=== PATIENT | male | born 1955 | race Caucasian/White ===

== ENCOUNTER → 2021-11-01 08:52 | Outpatient (BNVA) | payer MEDICARE, SELFPAY | PROVIDERS: PCP Neuromusculoskeletal Medicine & OMM; Referring Provider Neuromusculoskeletal Medicine & OMM; Visit Provider Surgery | DX: K42.9 Umbilical hernia without obstruction or gangrene (principal); Z91.89 Other specified personal risk factors, not elsewhere classified | CPT/HCPCS: 99203 ==

== ENCOUNTER 2021-11-21 04:03 | Outpatient (CLI) | payer MEDICARE, SELFPAY ==
[2021-11-21 10:48] LABS: Source Nasal/Nares
[2021-11-21 15:17] LABS: COVID-19 PCR Negative (Negative)
== END 2021-11-21 04:04 | disposition home or self-care (01) ==
LOC: LBO 04:03
PROVIDERS: PCP Neuromusculoskeletal Medicine & OMM; Visit Provider Surgery
DX: Z20.822 Contact with and (suspected) exposure to COVID-19 (principal); Z01.818 Encounter for other preprocedural examination
CPT/HCPCS: 87635; U0005

== ENCOUNTER 2021-11-23 17:06 | Observation (INO) | payer MEDICARE, SELFPAY ==
[2021-11-23] VITALS (15 sets, daily range): BP systolic 86–169; BP diastolic 53–88; PULSE 50–71; RESP 10–18; TEMP 36–36.6; O2SAT 94–98; BMI 33.9
--- NOTE | 2021-11-23 06:39 | ROE_ITS ---
Date of service: 11/23/21 Time of Service: 11:15 Operative Note Operative Note DATE OF PROCEDURE: 11/23/21 PRE-OP DIAGNOSIS: umbilical hernia POST-OP DIAGNOSIS: same PROCEDURE: Umbilical Hernia repair with mesh SURGEON: Liz Dunbar [employer]STATE FINANCIAL ANALYST: Zoe Narayanan Refer to Anesthesia Record ESTIMATED BLOOD LOSS: 25 PATHOLOGY: none sent COMPLICATIONS: None Patient was transported to: PACU Patient's condition: stable Implants: Ventralex Hernia Patch: REF- [id number] LOT- [id number] 2023-04-16 Indications: Mr[address] Street is a pleasant 66-year-old gentleman with a umbilical hernia that has some fat within it.? It is easily reduced.? It has grown over the last 4 years.? It is starting to bother him especially when he is active.? He denies any nausea, vomiting or changes in bowel habits.? We discussed open umbilical repair with a mesh.? I reviewed the surgery and its risks and complications using a pamphlet with pictures.? All of his questions were answered to his satisfaction.? He would like to wait until after sugaring before he has it repaired. Risks, benefits and complications have been reviewed. Complications include but are not limited to bleeding, pain, infection, injury to underlying structures like bowel and adverse reaction to the medication.? Questions were entertained and answered to their satisfaction and they wished to proceed. No guarantees were given or implied. Procedure Description: After informed consent was obtained the patient was taken to the operating room and placed in a supine position. Monitors and SCDs were applied and a timeout was done. The patient's name, date of , procedure type, procedure site, allergies to medications, preoperative antibiotic, and DVT prophylaxis were all reviewed. Fire risk was assessed. Next anesthesia did a bilateral rectus block under ultrasound guidance. Please see their separate dictation. Once anesthesia was done the abdomen was prepped and draped in a sterile surgical fashion. 0.5% Bupivacaine was injected into the dermis just under the umbilicus. An incision was made with a 10 blade under the umbilicus. Dissection was done with cautery through the subcutaneous tissues and through th e umbilical stalk down to the fascia. The hernia defect was identified and measured at 3 x 2.5 cm. There was omentum stuck within the defect. The omentum was placed back into the abdominal cavity and the peritoneum was swept for adhesions. No adhesions were noted. A 6.4 cm round mesh was then placed under the peritoneum and secured in 4 quarters with 2-0 Proline. Once the mesh was secured the tissues were irrigated with some normal saline. No bleeding was identified. The fascia was closed over the mesh with 0 vicryl running suture. 2-0 Vicryl was used to secure the umbilicus down to the fascia. The subcutaneous tissue was re-approximated with 2-0 vicryl. The dermis was re-approximated with a running 4-0 Vicryl. The skin was cleaned and dried and skin affix was applied. The patient was woken up and taken back to recovery in stable condition. There were no immediate complications. Sponge, instrument and needle counts were correct at the end of the case x2.
--- NOTE | 2021-11-23 06:41 | PDOC.DSDIS_ITS ---
Discharge Plan Disposition Patient Disposition: HOME Condition: Stable Discharge Details Reason For Visit: Umbilical hernia repair with mesh Attending Provider: Liz Dunbar Primary Care Provider: Kostas Meier [place] Meds and New Rx's Prescriptions: Continued cannabidiol 100 mg/mL solution PO 0RF chlorthalidone 25 mg tablet 25 mg PO DAILY 0RF metoprolol succinate 50 mg tablet extended release 24 hr 50 mg PO DAILY 0RF ramipril 10 mg capsule 10 mg PO DAILY 0RF simvastatin 80 mg tablet 40 mg PO DAILY 0RF aspirin [Adult Aspirin Regimen] 81 mg tablet,delayed release (DR/EC) 81 mg PO DAILY 0RF Discharge Instructions Additional Instructions: Activity at Home after surgery: 1. Make sure you walk outside at least 4 times per day 2. You should be able to climb a flight of stairs 3. No driving while in pain or taking pain medications 4. No strenuous activity or heavy lifting for 4 weeks (open surgery) Diet, Nutrition, & wound healin. Avoid alcohol until after you are recovered from your surgery 2. Make sure to eat plenty of lean protein (meat, fish, eggs, cottage cheese, beans) 3. Eat a variety of fruits and vegetables. Eat plenty of high fiber foods to avoid constipation. 4. Drink plenty of liquids to stay hydrated and avoid constipation Pain Medications: 1. Tylenol 650mg every 6 hours as needed and Ibuprofen 600 mg every 6 hours as needed. You may alternate between the 2 medications every 3 hours 2. If a narcotic has been prescribed take as directed only for breakthrough pain For Constipation: 1. Take Milk of Magnesia or MiraLax as needed for constipation Other: 1. You may shower daily. Do not scrub the incisions 2. Do not soak the incisions for 1 week 3. You may alternate ice and heat as needed for pain and swelling Wound Care: 1. Keep the incisions clean and dry Please call our office if you develop: 1. Fevers >101.5 2. Nausea or Vomiting 3. Worsening pain 4. Redness and thick discharge from the wounds If after hours please call the Hospital at and ask to speak to the on-call surgeon Referrals: Liz Dunbar MD [ [facility] STAFF PHYSICIAN] - Activity:: as above Remove Dressings/Wound Care:: Do Not Remove Shower/Bathe:: 24 hours Diet:: As Tolerated Discharge Orders Discharge Orders: Discharge Order (Routine); Ordered 11/23/21 Ordered By: Liz Dunbar
[2021-11-23] MEDS: Gabapentin 300 MG CAP 600 MG PO (09:22)
[2021-11-23] MEDS: Acetaminophen 500 MG TAB 1000 MG PO (09:22)
[2021-11-23] MEDS: Celecoxib 200 MG CAP PO (09:22)
--- NOTE | 2021-11-23 09:29 | W.ANESPRE ---
General Info Date of Service Date Performed: 11/23/21 Height: 5 ft 7 in Weight: 98.3 kg Body Mass Index (BMI): 33.9 Surgical Procedure: Operation Date: 11/23/21 11:10 Proposed Procedure Side Surgeon p Herniorrhaphy Umbilical w/Mesh Liz Dunbar MD Meds Allergies and Home Medications Allergies Allergy/AdvReac Type Severity Reaction Status Date / Time No Known Allergies Allergy Verified 11/23/21 09:10 Home Medication Medication Instructions Recorded aspirin 81 mg tablet,delayed 81 mg PO DAILY 11/01/21 release (Adult Aspirin Regimen) cannabidiol 100 mg/mL oral solution PO 11/01/21 chlorthalidone 25 mg tablet 25 mg PO DAILY 11/01/21 metoprolol succinate 50 mg 50 mg PO DAILY 11/01/21 tablet,extended release 24 hr ramipril 10 mg capsule 10 mg PO DAILY 11/01/21 simvastatin 80 mg tablet 40 mg PO DAILY 11/01/21 Current Visit Medications: Current Medications Generic Name Dose Route Start Last Admin Trade Name Freq PRN Reason Stop Dose Admin Acetaminophen 1,000 mg 11/23/21 06:00 11/23/21 09:22 Acetaminophen 500 Mg Tab PO 12/22/21 23:59 1,000 mg PREOP ERMA Administration Celecoxib 200 mg 11/23/21 06:00 11/23/21 09:22 Celecoxib 200 Mg Cap PO 12/22/21 23:59 200 mg PREOP ERMA Administration Gabapentin 600 mg 11/23/21 06:00 11/23/21 09:22 Gabapentin 300 Mg Cap PO 12/22/21 23:59 600 mg PREOP ERMA Administration Ringer's Solution 1,000 mls @ 80 mls/hr 11/23/21 06:00 IV 12/22/21 23:59 INFUSION ERMA Cefazolin Sodium/Dextrose 2 gm in 50 mls @ 100 mls/hr 11/23/21 06:00 Ancef Duplex IVPB 12/22/21 23:59 PREOP ERMA Ondansetron HCl 4 mg/ Sodium 52 mls @ 200 mls/hr 11/23/21 06:41 Chloride IVPB Q6H PRN PRN IV Miscellaneous Supplies 1 each 11/23/21 06:00 Iv Access IV 12/22/21 23:59 DIRECTED ERMA Ibuprofen 600 mg 11/23/21 06:41 Ibuprofen 600 Mg Tab PO Q6H PRN PRN Pain Oxycodone HCl 5 mg 11/23/21 06:41 Oxycodone 5 Mg Tab PO Q3H PRN PRN Pain Sodium Chloride 0 ml 11/23/21 06:00 Normal Saline Flush 10 Ml Syr IV 12/22/21 23:59 PRN PRN Sodium Chloride 0 ml 11/23/21 06:00 Normal Saline 10 Ml Vial IJ 12/22/21 23:59 DIRECTED PRN Sterile Water 0 ml 11/23/21 06:00 Water,Injection,Sterile 10 Ml Vial IJ 12/22/21 23:59 DIRECTED PRN PFSH Active Problems Active Problems: Problem Status Onset Code Umbilical hernia K42.9 Medical History Medical History Heart attack PCI/stent left circ ~2002 Heart palpitations Hyperlipidemia Hyperplasia of prostate Impaired fasting glucose Left shoulder pain Osteoarthritis of knee Over weight Plantar fascial fibromatosis Medical History Comments:: last surgery he had to stay over night d/t slow to come out of it Surgical History Surgical History (Updated 11/23/21 @ 09:10 by Tegan Valero RN) Hx of heart artery stent Hx of knee surgery b/l Tobacco Smoking/Tobacco Use Status: Former Tobacco Use Alcohol Alcohol Intake: current Alcohol intake frequency: 0-2 drinks per day Alcohol type: beer, wine and hard liquor Substance Use Substance use: Never Substance use type: does not use Vital Signs and Lab Results Vital Signs Most Recent Vital Signs in EMR: Most Recent Vital Signs Temp Pulse Resp BP Pulse Ox 36.6 C 64 16 158/82 H 97 11/23/21 08:53 11/23/21 08:53 11/23/21 08:53 11/23/21 08:53 11/23/21 08:53 Lab Results Blood Type / Crossmatch: No Data to Display Complete Blood Count: No Data to Display Complete Metabolic Panel: No Data to Display Liver Function Panel: No Data to Display Coagulation Panel: No Data to Display Cardiac Panel: No Data to Display Arterial Blood Gas: No Data to Display Venous Blood Gas: No Data to Display Pancreas Panel: No Data to Display Thyroid Panel: No Data to Display Infectious Disease: Coronavirus (COVID-19)(PCR) Negative (Negative) 11/21/21 08:25 11/21/21 Coronavirus 2019 Source Nasal/Nares 11/21/21 08:25 11/21/21 Blood Cultures: No Data to Display Toxicology Panel: No Data to Display Anesthesia Assessment and Plan Anesthesia History Personal History: Delayed Emergence Family History: No Family History of Anesthesia Complications Exercise Tolerance Exercise Tolerance: Metabolic Equivalents>4 Pertinent Negatives Pertinent Negatives: No Symptoms of GERD, No Major Cardiovascular Symptoms or Complaints, No Major Pulmonary Symptoms or Complaints, No History of CVA/TIA and Other (Possible carpal tunnel in right hand) Cardiac & Pulmonary Exam Cardiac Exam: Normal S1/S2 Heart Sounds Pulmonary Exam: Clear Bilateral Breath Sounds Implantable Cardiac Device Does patient have a Pacemaker or an ICD?: No Airway Exam Known Difficult Airway: No Mallampati Class: 2 Mouth Opening: Normal (> 3cm) Thyromental Distance: Greater than 3 cm Facial Hair: Full [place] Neck Range of Motion: Full ROM Neck Circumference: Normal Teeth Condition: Normal Dentition ASA Classification ASA Score: ASA 2 Emergency Case?: No NPO Status NPO Status: NPO Clears >2 hours, Solids >8 hours Anesthesia Plan Resuscitation Status: Full Code Anesthesia Technique: General Anesthesia Airway Planned: LMA Pain Management: Surgeon and patient request nerve block Monitors Used: Standard Monitors
[2021-11-23] MEDS: Lactated Ringers 1,000 ML 80 ML IV (09:32)
[2021-11-23] MEDS: ceFAZolin 2 GM/50 ML BAG IVPB (10:55)
--- NOTE | 2021-11-23 11:15 | W.ANESNERVE ---
Nerve Block Single Injection Procedure Date and Time Date Performed: 11/23/21 Procedure Start: 11:02 Location Where Procedure Performed Procedure Location: Operating Room Procedure Stop: 11:10 Reason Performed: Postoperative Analgesia Requesting Provider: Liz Dunbar Timeout Performed Timeout Performed: Yes Monitoring Used ECG, Blood Pressure, SpO2 and ETCO2 Sterility Sterility: Hand Hygiene, Surgical Cap, Surgical Mask, Sterile Gloves, Eye Protection and Chlorhexidine Sedation Given During Procedure Sedation Given (Indicate Dose Given): No Sedation given Patient Mental Status Patient Mental Status: Performed under general anesthesia Nerve Block 1st Nerve Block: Laterality: Bilateral Block Type: Rectus Sheath (Bilateral) Needle / Catheter Used: 100mm SonoPlex II Local Anesthetic Bolus (Indicate Dose Given): Bupivacaine 0.25% Dose:: 20 cc each side Additives (Indicate Dose Given): Precedex ((45 mcg each side)) Dose:: 90 mcg Ultrasound: Sterile probe cover and gel used Ultrasound Image Saved?: Yes Nerve Stimulator: Not Used Paresthesia: None Procedure Tolerated: No Complications and Patient tolerated well Procedure Outcome: Successful Performed By: Malika Chavez Supervised By: Jerry Can
[2021-11-23] MEDS: Bupivacaine 0.25% Pres-Free 30 ML VIAL (11:35)
--- NOTE | 2021-11-23 13:10 | W.ANESPOSTOP ---
Postoperative Evaluation Date, Time and Location Date Performed: 11/23/21 Time Performed: 13:10 Patient Location: Day Surgery Unit Vital Signs Most Recent Imported Vital Signs: Most Recent Vital Signs Temp Pulse Resp BP Pulse Ox 36.5 C 54 L 16 131/69 97 11/23/21 12:58 11/23/21 12:58 11/23/21 12:58 11/23/21 12:58 11/23/21 12:58 Pain Score Most Recent Pain Score: Most Recent Pain Score Pain Level 3 11/23/21 12:58 Assessment Mental Status: Awake (Alert & Oriented to Patient Baseline) Airway and Respiratory Function: Patent airway with normal (patient baseline) respiratory exam Cardiovascular Function: Hemodynamically Stable Hydration Status: Adequately Hydrated Nausea & Vomiting: No Nausea or Vomiting Pain: Pain is tolerable per patient Peripheral Nerve Block: Regional nerve block not resolved at time of post operative discharge
[2021-11-23] MEDS: Ondansetron O.D.T. 4 MG TABEF PO (15:28)
--- NOTE | 2021-11-23 17:11 | W.PREOPHP ---
Assessment and Plan Assessment and plan (1) Vertigo: Status: Acute Assessment and plan: 66 year old s/p umbilical hernia repair with mesh. Now with vertigo type symptoms and nausea. Unsteady on his feet P: Admission for Nausea and vertigo control Diet as tolerated Up ad lisha Meclezine for Vertigo Ibuprofen and tylenol as needed for pain Zofran and phenergan for nausea (2) Nausea: Status: Acute History of Present Illness Narrative: Cornelio is a pleasant 66 year old male who underwent an uncomplicated umbilical hernia repair with mesh. He unfortunately has developed vertigo with Nausea and is not steady on his feet. I have recommended admission overnight. Review of Systems All systems reviewed & are unremarkable except as noted in HPI and below PFSH All Active Problems (Updated 11/23/21 @ 17:14 by Liz Dunbar MD) Nausea (Acute) Vertigo (Acute) Umbilical hernia (Acute) Medical History Heart attack PCI/stent left circ ~2002 Heart palpitations Hyperlipidemia Hyperplasia of prostate Impaired fasting glucose Left shoulder pain Osteoarthritis of knee Over weight Plantar fascial fibromatosis Surgical History Hx of heart artery stent Hx of knee surgery b/l Social History Smoking/Tobacco Use Status: Former Tobacco Use Quit Date: 08/20/96 Smoking risk assessment performed?: Yes Alcohol Intake: current Alcohol Intake frequency: 0-2 drinks per day Alcohol type: beer, wine and hard liquor Drug use: Never Substance use type: does not use Current gender identity: male Do you feel safe at home: Yes Do you feel safe in your relationship?: Yes Meds Allergies and Home Medications Allergies Allergy/AdvReac Type Severity Reaction Status Date / Time No Known Allergies Allergy Verified 11/23/21 09:10 Home Medications Medication Instructions Recorded Confirmed Type aspirin 81 mg tablet,delayed 81 mg PO DAILY 11/01/21 11/23/21 History release (Adult Aspirin Regimen) cannabidiol 100 mg/mL oral solution PO 11/01/21 11/01/21 History chlorthalidone 25 mg tablet 25 mg PO DAILY 11/01/21 11/23/21 History metoprolol succinate 50 mg 50 mg PO DAILY 11/01/21 11/23/21 History tablet,extended release 24 hr ramipril 10 mg capsule 10 mg PO DAILY 11/01/21 11/23/21 History simvastatin 80 mg tablet 40 mg PO DAILY 11/01/21 11/23/21 History ondansetron 4 mg disintegrating 4 mg PO Q6H PRN #7 tab 11/23/21 Rx tablet Exam Const General: cooperative, comfortable and no acute distress HENMT Head: normocephalic and atraumatic Resp Effort & Inspection: normal respiratory effort Auscultation: clear to auscultation bilaterally Cardio Rate: regular rate Rhythm: regular rhythm GI Palpation: soft, no hepatosplenomegaly and tender (appropriate for postop) Results Last Vital Signs Temp 97.3 F L 11/23/21 15:08 Pulse 50 L 11/23/21 15:08 Resp 18 11/23/21 15:08 BP 169/88 H 11/23/21 15:08 Pulse Ox 95 11/23/21 15:08
[2021-11-23] MEDS: Meclizine 12.5 MG TAB PO (17:18)
[2021-11-23] MEDS: Lactated Ringers 1,000 ML 75 ML IV (17:43)
[2021-11-23] MEDS: Ibuprofen 600 MG TAB PO (21:42)
[2021-11-23] MEDS: Simvastatin 40 MG TAB PO (21:42)
[2021-11-24] MEDS: Ibuprofen 600 MG TAB PO (03:57)
[2021-11-24] MEDS: Normal Saline Flush 10 ML SYR IVP (03:58)
[2021-11-24 07:41] VITALS: BP 130/74; PULSE 59; RESP 16; TEMP 37.1; O2SAT 98
--- NOTE | 2021-11-24 07:53 | W.PM.PROGNOT ---
Date of Service Date of service: 11/24/21 Time of Service: 07:53 Assessment and Plan Assessment and plan (1) Vertigo: Status: Acute Assessment and plan: POD #1 s/p umbilical hernia repair with mesh Patient was kept over night secondary to post-op vertigo symptoms of nausea and vomiting. These symptoms have completely resolved. Pain is well controlled with Tylenol Denies any fevers chills or night sweats. D/C home. (2) Nausea: Status: Acute Subjective Subjective Interval history since last seen: Patient reports his dizziness and nausea resolved around 7-8pm and he has continued to feel well since around that time. He denies any nausea, vomiting or dizziness. He is eager to be d/c home. Exam Const General: cooperative, healthy appearing and comfortable Orientation: alert and oriented x3 Resp Effort & Inspection: normal respiratory effort, no audible wheezes and no cough Objective Last Vital Signs Temp 37.1 C 11/24/21 07:41 Pulse 59 L 11/24/21 07:41 Resp 16 11/24/21 07:41 BP 130/74 11/24/21 07:41 Pulse Ox 98 11/24/21 07:41
--- NOTE | 2021-11-24 07:56 | W.PM.DS.N ---
Date of service: 11/24/21 Time of Service: 07:56 DS: Diagnosis Discharge Diagnosis (1) Vertigo: Status: Acute (2) Nausea: Status: Acute Discharge Plan Disposition Patient Disposition: HOME Condition: Good Discharge Details Reason For Visit: Umbilical hernia repair with mesh Admit Date/Time: 11/23/21 17:06 Admit Provider: Liz Dunbar Attending Provider: Liz Dunbar Primary Care Provider: Kostas Meier Hospital Course Hospital Course: 66 y/o male whom underwent umbilical hernia repair with mesh on 11/23 was admitted for observation over night secondary to nausea and dizziness post-operatively. These symptoms resolved over night. The patient's post-op pain is well controlled with tylenol. No fevers, chills or night sweats. D/C home Follow up in the Surgical Office in 2 weeks. Home Meds and New Rx's Prescriptions: New ondansetron 4 mg tablet,disintegrating 4 mg PO Q6H PRNQty: 7 0RF Continued cannabidiol 100 mg/mL solution PO 0RF chlorthalidone 25 mg tablet 25 mg PO DAILY 0RF metoprolol succinate 50 mg tablet extended release 24 hr 50 mg PO DAILY 0RF ramipril 10 mg capsule 10 mg PO DAILY 0RF simvastatin 80 mg tablet 40 mg PO DAILY 0RF aspirin [Adult Aspirin Regimen] 81 mg tablet,delayed release (DR/EC) 81 mg PO DAILY 0RF Discharge Instructions Additional Instructions: Activity at Home after surgery: 1. Make sure you walk outside at least 4 times per day 2. You should be able to climb a flight of stairs 3. No driving while in pain or taking pain medications 4. No strenuous activity or heavy lifting for 4 weeks (open surgery) Diet, Nutrition, & wound healin. Avoid alcohol until after you are recovered from your surgery 2. Make sure to eat plenty of lean protein (meat, fish, eggs, cottage cheese, beans) 3. Eat a variety of fruits and vegetables. Eat plenty of high fiber foods to avoid constipation. 4. Drink plenty of liquids to stay hydrated and avoid constipation Pain Medications: 1. Tylenol 650mg every 6 hours as needed and Ibuprofen 600 mg every 6 hours as needed. You may alternate between the 2 medications every 3 hours 2. If a narcotic has been prescribed take as directed only for breakthrough pain For Constipation: 1. Take Milk of Magnesia or MiraLax as needed for constipation Other: 1. You may shower daily. Do not scrub the incisions 2. Do not soak the incisions for 1 week 3. You may alternate ice and heat as needed for pain and swelling Wound Care: 1. Keep the incisions clean and dry Please call our office if you develop: 1. Fevers >101.5 2. Nausea or Vomiting 3. Worsening pain 4. Redness and thick discharge from the wounds If after hours please call the Hospital at and ask to speak to the on-call surgeon Stand Alone Forms: Anesthesia Discharge Inst., Anes.Nerve Block Instructions Referrals: Liz Dunbar MD [ [facility] STAFF PHYSICIAN] - Activity:: No heavy lifting, pushing Equipment/Supplies:: No Equipment Needed Diet:: As Tolerated Discharge Orders Discharge Orders: Discharge Order (Routine); Ordered 11/24/21 Ordered By: Zoe Narayanan DS: Summary Time Spent with Patient providing and/or coordinating discharge services: Less than 30 minutes Status at Discharge Functional status at discharge: independent ambulation Overall status at discharge: patient is back to baseline Mental Status: mental status grossly normal Speech and Movement: speech and movement normal Mood: congruent mood Affect: normal affect Exam Const General: cooperative, healthy appearing and comfortable Orientation: alert and oriented x3 Resp Effort & Inspection: normal respiratory effort, no audible wheezes and no cough Psych Mental Status: mental status grossly normal Speech and Movement: speech and movement normal Mood: congruent mood Affect: normal affect DS: Data Vitals/I&O Vitals and I&O: Vital Signs Temperature 37.1 C 11/24/21 07:41 Temperature Source Tympanic 11/24/21 07:41 Pulse 59 L 11/24/21 07:41 Pulse Rhythm Regular 11/24/21 01:04 Respiratory Rate 16 11/24/21 07:41 Respiratory Effort 11/24/21 01:04 Respiratory Depth Normal 11/24/21 01:04 Respiratory Pattern Normal 11/24/21 01:04 Blood Pressure 130/74 11/24/21 07:41 Blood Pressure Mean 102 11/23/21 17:57 Blood Pressure Position Supine 11/23/21 17:57 Pulse Oximetry 98 11/24/21 07:41 Respiratory End-tidal CO2 35 11/23/21 12:58 Oxygen Delivery Method Room Air 11/24/21 07:41 Oxygen Flow Rate 0 11/24/21 07:41 Pain Level 0 11/24/21 07:41 Comment 11/23/21 17:57 Intake & Output 11/23/21 11/24/21 11/24/21 18:59 06:59 18:59 Intake Total 628.667 / 868.667 240 / 868.667 Balance 628.667 / 868.667 240 / 868.667 Weight 98.6 kg Intake: IV 628.667 / 628.667 Oral 240 / 240 Other: Emesis Description None Voiding Methods Toilet PFSH All Active Problems (Updated 11/23/21 @ 17:14 by Liz Dunbar MD) Nausea (Acute) Vertigo (Acute) Umbilical hernia (Acute) Medical History Heart attack PCI/stent left circ ~2002 Heart palpitations Hyperlipidemia Hyperplasia of prostate Impaired fasting glucose Left shoulder pain Osteoarthritis of knee Over weight Plantar fascial fibromatosis Surgical History Hx of heart artery stent Hx of knee surgery b/l Social History Smoking/Tobacco Use Status: Former Tobacco Use Quit Date: 08/20/96 Smoking risk assessment performed?: Yes Alcohol Intake: current Alcohol Intake frequency: 0-2 drinks per day Alcohol type: beer, wine and hard liquor Drug use: Never Substance use type: does not use Current gender identity: male Do you feel safe at home: Yes Do you feel safe in your relationship?: Yes
== END 2021-11-24 08:37 | disposition home or self-care (01) ==
LOC: MS 18:16
PROVIDERS: Admitting Provider Surgery; PCP Neuromusculoskeletal Medicine & OMM; Visit Provider Surgery
PROC: (CPT 49585; principal; 2021-11-23 11:00)
DX: K42.9 Umbilical hernia without obstruction or gangrene (principal); T81.89XA Other complications of procedures, not elsewhere classified, initial encounter; R42 Dizziness and giddiness; R11.0 Nausea; R26.81 Unsteadiness on feet; I25.2 Old myocardial infarction; Z95.5 Presence of coronary angioplasty implant and graft; E78.5 Hyperlipidemia, unspecified; N40.0 Benign prostatic hyperplasia without lower urinary tract symptoms; R73.01 Impaired fasting glucose; E66.3 Overweight; Z68.34 Body mass index [BMI] 34.0-34.9, adult; Z87.891 Personal history of nicotine dependence
CPT/HCPCS: 49585; 76942; C1781; J0690; J1100; J1885; J2250; J2405; J2704

== ENCOUNTER → 2021-12-09 11:21 | Outpatient (BNVA) | payer MEDICARE, SELFPAY | PROVIDERS: PCP Neuromusculoskeletal Medicine & OMM; Referring Provider Neuromusculoskeletal Medicine & OMM; Visit Provider Physical Therapy Assistant | DX: Z48.817 Encounter for surgical aftercare following surgery on the skin and subcutaneous tissue (principal) ==